=== PATIENT | female | born 1950 | race Caucasian/White ===

== ENCOUNTER 2017-09-29 07:00 | Day surgery (SDC) | payer MEDICARE ==
[~2017-09-29 07:00] MED LIST: Lactated Ringers 1,000 ML IV SCH; Lidocaine 1%/Sod Bicarbonate in NS 8.4% 1 ML Syringe PRN; Sodium Chloride 0.9% 10 ML Syringe FLUSH PRN
[2017-09-29] MEDS ORDERED: EPINEPHrine 1 MG/ML 30 ML MDV ONE (07:03)
[2017-09-29] MEDS ORDERED: Ropivacaine 0.5% 5 MG/ML 30 ML SDV ONE (07:08)
[2017-09-29] MEDS ORDERED: EPINEPHrine 1 MG/ML SDV ONE (07:08)
[2017-09-29] MEDS ORDERED: ceFAZolin 1 GM Vial ONE (07:14)
[2017-09-29] MEDS ORDERED: Lactated Ringers 1,000 ML ONE ×2 (07:14→10:08)
[2017-09-29] MEDS ORDERED: Propofol 200 MG/20 ML SDV ONE ×2 (07:14→09:58)
[2017-09-29] MEDS ORDERED: Dexamethasone 4 MG/ML SDV ONE (07:14)
[2017-09-29] MEDS ORDERED: Ondansetron 4 MG/2 ML SDV ONE (07:14)
[2017-09-29] MEDS ORDERED: Rocuronium 50 MG/5 ML Vial ONE (07:14)
[2017-09-29] MEDS ORDERED: Phenylephrine 1% 10 MG/ML SDV ONE (07:15)
[2017-09-29] MEDS ORDERED: fentaNYL 250 MCG/5 ML SDV ONE (07:15)
[2017-09-29] MEDS ORDERED: Midazolam 1 MG/ML 2 ML SDV ONE (07:15)
[2017-09-29] MEDS ORDERED: Lidocaine 1% 4 ML ONE (07:15)
--- NOTE | 2017-09-29 07:32 | PCM.PREANE ---
Preanesthetic Assessment - Anesthesia/Transfusion/Family Hx Anesthesia History: Prior Anesthesia Without Reaction Family History of Anesthesia Reaction: No Transfusion History: No Prior Transfusion(s) Intubation History: Unknown - Review of Systems General: No Symptoms Pulmonary: No Symptoms Cardiovascular: No Symptoms Gastrointestinal: No Symptoms Neurological: No Symptoms, Other (Vertigo) Other: Reports: Depression, Anxiety - Physical Assessment NPO Status Date: 09/28/17 NPO Status Time: 22:00 Pulse: 65 O2 Sat by Pulse Oximetry: 98 Respiratory Rate: 16 Blood Pressure: 130/65 Temperature: 36.9 C Weight: 77 kg ASA Class: 2 Mental Status: Alert & Oriented x3 Airway Class: Mallampati = 2 Dentition: Reports: Normal Dentition Thyro-Mental Finger Breadths: 2 Mouth Opening Finger Breadths: 3 ROM/Head Extension: Full Lungs: Clear to Auscultation, Normal Respiratory Effort Cardiovascular: Regular Rate, Regular Rhythm - Lab Values: Laboratory Last Values MRSA (PCR) Negative 09/28/17 13:52 - Imaging/EKG Impressions: Reviewed - Allergies Allergies/Adverse Reactions: Allergies Allergy/AdvReac Type Severity Reaction Status Date / Time No Known Allergies Allergy Verified 09/28/17 12:48 - Acknowledgements Anesthesia Type Planned: General Anesthesia Pt an Appropriate Candidate for the Planned Anesthesia: Yes Alternatives and Risks of Anesthesia Discussed w Pt/Guardian: Yes Pt/Guardian Understands and Agrees with Anesthesia Plan: Yes PreAnesthesia Questionnaire HEENT History: Reports: Cataract Cardiovascular History: Reports: Hypertension Respiratory History: Reports: None Gastrointestinal History: Reports: None Genitourinary History: Reports: None [employer]GER History: Reports: None Musculoskeletal History: Reports: Other (See Below) Other Musculoskeletal History: left shoulder pain, joint pain Neurological History: Reports: Vertigo Psychiatric History: Reports: Anxiety, Depression Endocrine/Metabolic History: Reports: None Hematologic History: Reports: None Immunologic History: Reports: None Oncologic (Cancer) History: Reports: None Dermatologic History: Reports: None - Past Surgical History Head Surgeries/Procedures: Reports: None Cardiovascular Surgical History: Reports: None Respiratory Surgical History: Reports: None GI Surgical History: Reports: Colonoscopy Female Surgical History: Reports: D&C, Hysterectomy Male Surgical History: Reports: None Endocrine Surgical History: Reports: None Neurological Surgical History: Reports: None Musculoskeletal Surgical History: Reports: None Oncologic Surgical History: Reports: None Dermatological Surgical History: Reports: None - SUBSTANCE USE Smoking Status *Q: Former Smoker Recreational Drug Use History: No - HOME MEDS Home Medications: Home Meds Calcium Carb/Magnesium Cmb #10 [Sanket-Mag] 1 tab PO DAILY 09/28/17 [History] Cholecalciferol (Vitamin D3) [Vitamin D3] 1,000 units PO DAILY 09/28/17 [History ] FLUoxetine [PROzac] 20 mg PO DAILY 09/28/17 [History] Fish Oil/[place]-3 Fatty Acids [Fish Oil 1,000 MG] 1,000 mg PO DAILY 09/28/17 [ History] Lisinopril/Hydrochlorothiazide [Lisinopril-Hctz 20-12.5 mg Tab] 1 tab PO DAILY 09/28/17 [History] Multivitamin [One Daily] 1 tab PO DAILY 09/28/17 [History] Naproxen [Naprosyn] 500 mg PO DAILY 09/28/17 [History] Acetaminophen/HYDROcodone [[place] 325-5 MG] 1 - 2 tab PO Q6H PRN #40 tablet 09/29 [Rx] Cyclobenzaprine [Flexeril] 10 mg PO Q8H PRN #40 tablet 09/29/17 [Rx] - CURRENT (IN HOUSE) MEDS Current Meds: Current Medications Lactated Ringer's (Ringers, Lactated) 1,000 mls @ 125 mls/hr IV ASDIRECTED JAIDA Stop: 09/29/17 23:00 Lidocaine/Sodium Bicarbonate (Buffered Lidocaine 1% In Ns 8.4%) 0.25 ml .XX ONETIME PRN PRN Reason: Prior to IV Start Stop: 09/29/17 18:00 Scopolamine (Transderm-Scop) 1.5 mg TRDERM ONETIME ONE Stop: 09/29/17 09:01 Sodium Chloride (Saline Flush) 10 ml FLUSH ASDIRECTED PRN PRN Reason: Keep Vein Open Stop: 09/29/17 18:00 Discontinued Medications Bupivacaine HCl (Marcaine 0.25%) Confirm Administered Dose 30 ml .ROUTE .STK- MED ONE Stop: 09/29/17 07:03 Cefazolin Sodium (Ancef) Confirm Administered Dose 2 gm .ROUTE .STK-MED ONE Stop: 09/29/17 07:15 Dexamethasone (Dexamethasone) Confirm Administered Dose 4 mg .ROUTE .STK-MED ONE Stop: 09/29/17 07:15 Epinephrine HCl (Adrenalin 1:1000) Confirm Administered Dose 30 mg .ROUTE .ST- MED ONE Stop: 09/29/17 07:04 Epinephrine HCl (Adrenalin 1:1000) Confirm Administered Dose 1 mg .ROUTE .STK- MED ONE Stop: 09/29/17 07:09 Fentanyl (Sublimaze) Confirm Administered Dose 250 mcg .ROUTE .ST-MED ONE Stop: 09/29/17 07:16 Lactated Ringer's (Ringers, Lactated) Confirm Administered Dose 1,000 mls @ as directed .ROUTE .ST-MED ONE Stop: 09/29/17 07:15 Lidocaine HCl (Xylocaine-Mpf 1%) Confirm Administered Dose 4 mls @ as directed .ROUTE .ST-MED ONE Stop: 09/29/17 07:16 Midazolam HCl (Versed 1 Mg/Ml) Confirm Administered Dose 2 mg .ROUTE .ST-MED ONE Stop: 09/29/17 07:16 Ondansetron HCl (Zofran) Confirm Administered Dose 4 mg .ROUTE .ST-MED ONE Stop: 09/29/17 07:15 Phenylephrine HCl (Matthias-Synephrine) Confirm Administered Dose 10 mg .ROUTE .ST- MED ONE Stop: 09/29/17 07:16 Propofol (Diprivan 20 Ml) Confirm Administered Dose 200 mg .ROUTE .ST-MED ONE Stop: 09/29/17 07:15 Rocuronium Justice (Zemuron) Confirm Administered Dose 50 mg .ROUTE .ST-MED ONE Stop: 09/29/17 07:15 Ropivacaine (Naropin 0.5%) Confirm Administered Dose 30 ml .ROUTE .ST-MED ONE Stop: 09/29/17 07:09
--- NOTE | 2017-09-29 08:23 | PCM.SN ---
- Free Text/Narrative Note: Anesthesia Procedure Note: (Interscalene Block Note) Date: 09/29/2017 Time Out: 757 Start: 757 Stop: 813 Surgical Procedure: Left Shoulder Video Arthroscopy with Rotator Cuff Repair Subacrimal Decompression Diagnosis: Left Shoulder Rotator Cuff Tear Current Procedure: Left Interscalene Block under US guidance for postoperative pain control requested by Dr. Champion. Patient chart reviewed, risk/benefits discussed with patient, consent obtained. Patient positioned supine, monitors/alarms on, oxygen placed via nasal cannula at 2 LPM. IV sedation administered: Versed 2mg IV @ 0759 Fentanyl 50 mcg IV @ 0804 Left shoulder prepped with two chloropreps. Sterile drapes placed with aseptic technique noted. Under US guidance(sterile US sleeve noted) left subclavian artery visualized along with the left brachial plexus. Plexus followed up to C6 cricoid level, and area localized with 2mls of 1% lidocaine. 22gauge 2 inch stimiplex needle advanced under US with 0.5mV with stimulation of biceps noted. Good stimulation noted with decreased voltage and absent at 0.2mVs. 1ml of Normal Saline injected with loss of stimulation noted to confirm needle not placed intraneurally. Incremental dosing of 5mls with negative aspiration noted prior to each injection of 0.5% ropivacaine with 1:200,000 epinephrine. Total volume=30mls. Radha tolerated the procedure well. No complications were noted. Vital signs stable throughout the procedure. Radha verbalized pain subsiding in shoulder with limited movement noted at completion.
[2017-09-29] MEDS ORDERED: Scopolamine 1.5 MG Transdermal Patch TRDERM ONE (08:45)
[2017-09-29] MEDS ORDERED: Lidocaine 1% 2 ML ONE (09:22)
[2017-09-29] MEDS: Bupivacaine 0.25% 30 ML SDV ONE ×2 (09:33→09:47)
[2017-09-29] MEDS ORDERED: fentaNYL 100 MCG/2 ML SDV IVPUSH PRN (09:45)
[2017-09-29] MEDS ORDERED: Haloperidol Lactate 5 MG/ML SDV IVPUSH ONE (09:45)
[2017-09-29] MEDS ORDERED: HYDROmorphone 0.5 MG/0.5 ML Syringe IVPUSH PRN (09:45)
[2017-09-29] MEDS ORDERED: Neostigmine Methylsulfate 1 MG/ML 5 ML Syringe ONE (10:02)
--- NOTE | 2017-09-29 10:14 | PCM.POSTAN ---
POST ANESTHESIA ASSESSMENT - MENTAL STATUS Mental Status: Alert, Oriented - VITAL SIGNS Pulse Rate: 79 SaO2: 92 Resp Rate: 15 Blood Pressure: 125/62 Temperature: 36.3 C - RESPIRATORY Respiratory Status: Respiratory Rate WNL, Airway Patent, O2 Saturation Stable - CARDIOVASCULAR CV Status: Pulse Rate WNL, Blood Pressure Stable - GASTROINTESTINAL GI Status: No Symptoms - PAIN Pain Score: 0 - POST OP HYDRATION Hydration Status: Adequate & Stable
--- NOTE | 2017-09-30 07:05 | PCM48HPAN ---
Post Anesthesia Note - EVALUATION WITHIN 48HRS OF ANESTHETIC Vital Signs in Normal Range: Yes Patient Participated in Evaluation: Yes Respiratory Function Stable: Yes Airway Patent: Yes Cardiovascular Function Stable: Yes Hydration Status Stable: Yes Pain Control Satisfactory: Yes Nausea and Vomiting Control Satisfactory: Yes Mental Status Recovered: Yes
--- NOTE | 2017-10-05 21:58 | PCM.OPNOTE ---
- General Post-Op/Procedure Note Date of Surgery/Procedure: 09/29/17 Operative Procedure(s): left shoulder video arthroscopy with medium rotator cuff repair with biceps tenodesis, subacromial decompression and limited debridement Pre Op Diagnosis: left shoulder rotator cuff tear with impingement Post-Op Diagnosis: same with biceps tendinopathy Anesthesia Technique: General ET Tube, Regional Block Primary Surgeon: Jd Champion Anesthesia Provider: Sandy Sellers Stereo Equipment Installer: Norah Jade in mLs: 5 Complications: None Condition: Good
--- NOTE | 2017-10-05 22:55 | OR ---
DATE OF OPERATION: 09/29/2017 SURGEON: Jd Champion MD OPERATION PERFORMED: 1. Left shoulder video arthroscopy with medium rotator cuff repair. 2. Left shoulder biceps tenodesis. 3. Left shoulder subacromial decompression. 4. Left shoulder limited debridement. PREOPERATIVE DIAGNOSIS: Left shoulder rotator cuff tear with impingement. POSTOPERATIVE DIAGNOSIS: Left shoulder rotator cuff tear with impingement with biceps tendinopathy. ANESTHESIA: General endotracheal intubation with interscalene block. ANESTHESIA PROVIDER: María Palmer. ASSISTANTS: Norah Jade PA-C. ESTIMATED BLOOD LOSS: Less than 5 mL. COMPLICATIONS: None. CONDITION: Stable. DESCRIPTION OF PROCEDURE: The patient was identified in the preoperative holing area. Proper site was marked and identified by the surgeon. The patient taken back to the operating theater where after adequate anesthesia, the patient was placed in the lazy right lateral decubitus position. The patient was secured to the table after a wedge was placed posteriorly. All bony prominences were well padded. The left shoulder was then sterilely prepped and draped in the usual sterile fashion. OR time-out was performed. The patient received 2 g IV Ancef. 12 pounds of traction was applied to the left upper extremity. Standard posterior incision was made, and the scope trocar was introduced carried down to the glenohumeral joint. At this time, the patient was noted to have a tear to the supraspinatus. She was noted to have slight glenoid chondromalacia near the anterior portion with fraying of the labrum as well. The patient was noted to have significant biceps tendinopathy as well. At this time, it was decided that we would do a biceps tenodesis. An anterior portal was then made from an outside-in technique with the use of a spinal needle. At this time, with the use of a spinal needle, a FiberWire was placed through the biceps tendon in 2 different positions. Tenotomy was performed for later tenodesis in the rotator interval with a FiberWire. At this time, the labrum was debrided back to a stable edge on the anterior portion. Attention was turned to the subacromial space. At this time, a lateral portal was created with the use of a spinal needle. There was noted to be a tear near the insertional area of the supraspinatus near the proximal part of the footprint. At this time, good bony bleeding bed was created, and it was decided that we would just use 1 lateral row anchor. At this time, a FiberTape was placed medially in a horizontal mattress stitch-type fashion. One 4.75 mm Arthrex SwiveLock anchor punch was then done laterally. The FiberTape limbs were then brought through the anchor and then were impacted into the punch hole and tension was applied. There was noted to be adequate watertight repair of the previous rotator cuff tear. At this time, the suture limbs through the biceps tenodesis were then identified and were tied in the rotator interval for biceps tenodesis. Debridement was then done of the subacromial space off significant bursitis. At this time, the undersurface of the acromion was found to be a type 2/3, and a 4-0 full-radius bur was then used for resection of the undersurface of the acromion back to a type 1 acromion. At this time, excess saline was drained from the shoulder. 3-0 nylon simple suture was used for closure of the portals. The patient was placed in a pillow sling and a sterile soft dressing and was sent to the PACU in stable condition. ROXANNE /[id number]
== END 2017-09-29 12:20 | disposition home or self-care (01) ==
LOC: JD.SDS 07:00
PROVIDERS: ATTEND Orthopaedic Surgery
DX: M75.102 Unspecified rotator cuff tear or rupture of left shoulder, not specified as traumatic (principal); M75.42 Impingement syndrome of left shoulder; M75.22 Bicipital tendinitis, left shoulder; I10 Essential (primary) hypertension; F32.9 Major depressive disorder, single episode, unspecified; F41.9 Anxiety disorder, unspecified; Z90.710 Acquired absence of both cervix and uterus; Z79.899 Other long term (current) drug therapy; M25.512 Pain in left shoulder
CPT/HCPCS: 29822; 29826; 29827; 29828; 64415; 87641; A9270; J0171; J0690; J1100; J2250; J2370; J2405; J2710; J2795; J3010; J3490; J7120; 01638; J2704